=== PATIENT | male | born 1940 | race Caucasian/White ===

== ENCOUNTER 2016-10-30 09:00 | Emergency (ER) | payer MEDICARE, OTHER ==
[2016-10-30] MEDS ORDERED: Ketorolac Tromethamine 60 MG/2 ML VIAL ONE (09:23)
[2016-10-30] MEDS ORDERED: HYDROcodone/Acetaminophen 10/325 mg Tablet ONE (09:23)
== END 2016-10-30 09:39 | disposition home or self-care (01) ==
LOC: BURERS 09:00
DX: M62.838 Other muscle spasm (principal); M79.604 Pain in right leg; I10 Essential (primary) hypertension
CPT/HCPCS: 96372; J1885

== ENCOUNTER 2018-12-17 13:55 | Emergency (ER) | payer MEDICARE ==
[2018-12-17] MEDS ORDERED: Ketorolac Tromethamine 30 MG/ML VIAL ONE (14:22)
[2018-12-17] MEDS ORDERED: Fentanyl 100 MCG/2 ML VIAL ONE ×2 (14:22→14:51)
[2018-12-17] MEDS ORDERED: HYDROcodone/Acetaminophen 5/325 mg Tablet ONE (14:51)
--- NOTE | 2018-12-17 19:59 | RAD ---
PORTABLE CHEST: Date: 12-17-18 FINDINGS: An AP portable film at 1437 shows a normal sized heart with no mediastinal widening or shift. The tra see is midline. The lungs are fully inflated and clear. There is no sign of pneumothorax or pleural effusions. IMPRESSION: No acute thoracic findings. POS: HOME
--- NOTE | 2018-12-17 20:19 | RAD ---
LEFT SHOULDER THREE VIEWS: Date: 12-17-18 FINDINGS: There is a fracture through the body of the scapula that starts just below the glenoid fossa and exte nds medially. There is slight displacement of fragments. Calcific tendinitis is seen in the soft tiss ues around the humeral head. No major rib fractures were demonstrated. There was perhaps a little irr egularity of the left 3rd rib, but not enough to call any fracture. There is no sign of a pneumothora x. Degenerative changes are present in the AC joint. There are no dislocations. IMPRESSION: 1. A fracture through the body of the scapula. 2. Calcific tendinitis. POS: HOME
== END 2018-12-17 15:55 | disposition home or self-care (01) ==
LOC: BURERS 13:55
DX: S42.112A Displaced fracture of body of scapula, left shoulder, initial encounter for closed fracture (principal); E78.5 Hyperlipidemia, unspecified; I10 Essential (primary) hypertension; W11.XXXA Fall on and from ladder, initial encounter
CPT/HCPCS: 71045; 96374; 96375; J1885; J3010

== ENCOUNTER 2018-12-20 13:29 | Emergency (ER) | payer MEDICARE ==
--- NOTE | 2018-12-20 18:09 | RAD ---
PORTABLE CHEST 12/20/18 An AP portable film at 1350 is compared with a 12/17/18 study. In the interval, there has been the appearance of subcutaneous emphysema seen at the base of the neck and over the top of the left shoulder. I do not see a pneumothorax or pleural effusion. The patient' s known left scapular fracture is not easily seen on this particular study. The trachea is midline. T he heart size is normal. IMPRESSION: Interval appearance of subcutaneous emphysema as described above. See CT report to follow. POS: HOME
--- NOTE | 2018-12-20 18:13 | CT ---
CT OF THE CHEST WITHOUT CONTRAST 12/20/18 There is an extensive amount of subcutaneous emphysema seen dissecting into the neck bilaterally, but more so on the left. Subcutaneous air is present over the left shoulder and in the left anterior rusty st wall, dissecting between the pectoral muscles. There is a small pneumomediastinum. Air is seen humza und the tracheoesophageal region. No pericardial effusion was seen. The lungs showed no pneumothorax or pleural effusion. The thoracic vertebrae appear intact. Some Schmorl's nodes were noted in some of them. The multiple comminuted fractures of the left scapula are noted with some off-set of fragments. In sp ite of the air seen, I am hard pressed to find a definite or significant rib fracture. IMPRESSION: 1. Interval appearance of a pneumomediastinum and extensive subcutaneous emphysema at the base o f the neck and left anterior chest wall. 2. Multiple fractures of the left scapula as noted. 3. No evidence of pneumothorax, significant pleural effusion, or pulmonary contusion. POS: HOME
== END 2018-12-20 14:41 | disposition home or self-care (01) ==
LOC: BURERS 13:29
DX: T79.7XXA Traumatic subcutaneous emphysema, initial encounter (principal); E78.5 Hyperlipidemia, unspecified; I10 Essential (primary) hypertension; Z79.899 Other long term (current) drug therapy; W18.30XA Fall on same level, unspecified, initial encounter
CPT/HCPCS: 71045; 71250

== ENCOUNTER 2024-08-25 22:28 | Emergency (ER) | payer MEDICARE ==
[2024-08-25] MEDS ORDERED: Aspirin Chewable 81 MG TAB ONE (22:49)
[2024-08-25 22:55] LABS: #Basophils 0.1 thou/uL (0.0-0.2); #Eosinophils 0.2 thou/uL (0.0-0.7); #Lymphocytes 1.7 thou/uL (1.20-3.40); #Monocytes 0.9 thou/uL (0.11-0.59); #Neutrophils 6.4 thou/uL (1.40-6.50); %Basophils 1.1 % (0.0-1.0); %Eosinophils 2.1 % (0.0-10.0); %Lymphocytes 18.6 % (21.0-51.0); %Monocytes 9.5 % (0.0-10.0); %Neutrophils 68.8 % (42.0-75.0); Hematocrit 42.3 % (42.0-52.0); Hemoglobin 14.8 g/dL (14.0-18.0); Mean Corpuscular HGB CONC 34.9 g/dL (32.0-36.0); Mean Corpuscular Hemoglobin 30.9 pg (27.0-31.0); Mean Corpuscular Volume 88.6 fl (78.0-98.0); Mean Platelet Volume 6.8 fL (7.4-10.4); Platelet Count 207 10x3/uL (130-400); RBC Distribution Width 11.3 % (11.5-14.5); Red Blood Cell (RBC) Count 4.77 mill/uL (4.70-6.10); White Blood Cell (WBC) Count 9.3 10x3/uL (4.8-10.8)
[2024-08-25 23:11] LABS: ALT (SGPT) 24 U/L (8-55); AST (SGOT) 25 U/L (5-34); Albumin 3.9 g/dL (3.4-4.8); Alkaline Phosphatase 79 U/L (40-110); Anion Gap 13 mmol/L (10-20); BUN (Urea Nitrogen) 18 mg/dL (8.4-25.7); Bilirubin, Total 0.5 mg/dL (0.2-1.2); Calc. Creatinine Clearance 0 mL/min (70-130); Calcium 9.1 mg/dL (7.8-10.44); Carbon Dioxide 22 mmol/L (23-31); Chloride 109 mmol/L (98-107); Estimated GFR 70; Globulin 2.8 g/dL (2.4-3.5); Glucose 103 mg/dL (83-110); Potassium 3.8 mmol/L (3.5-5.1); Protein, Total 6.7 g/dL (5.8-8.1); Sodium 140 mmol/L (136-145)
[2024-08-25 23:17] LABS: Troponin I Less than 0.010 ng/mL (< 0.028)
== END 2024-08-26 01:12 | disposition home or self-care (01) ==
LOC: BURERS 22:28
DX: R07.89 Other chest pain (principal); E78.5 Hyperlipidemia, unspecified; I10 Essential (primary) hypertension
CPT/HCPCS: 71045; 80053; 84484; 85025; 93005

== ENCOUNTER 2025-04-01 07:37 | Emergency (ER) | payer MEDICARE ==
[2025-04-01 08:12] LABS: #Basophils 0.1 thou/uL (0.0-0.2); #Eosinophils 0.1 thou/uL (0.0-0.7); #Lymphocytes 1.6 thou/uL (1.20-3.40); #Monocytes 0.5 thou/uL (0.11-0.59); #Neutrophils 4.7 thou/uL (1.40-6.50); %Basophils 1.3 % (0.0-1.0); %Eosinophils 1.8 % (0.0-10.0); %Lymphocytes 22.1 % (21.0-51.0); %Monocytes 7.6 % (0.0-10.0); %Neutrophils 67.3 % (42.0-75.0); Hematocrit 44.3 % (42.0-52.0); Hemoglobin 15.5 g/dL (14.0-18.0); Mean Corpuscular Hemoglobin 31.8 pg (27.0-31.0); Mean Corpuscular Volume 90.7 fl (78.0-98.0); Platelet Count 182 10x3/uL (130-400); Red Blood Cell (RBC) Count 4.88 mill/uL (4.70-6.10); White Blood Cell (WBC) Count 7.1 10x3/uL (4.8-10.8)
[2025-04-01] MEDS ORDERED: Nitroglycerin 0.4 MG TAB 1 EACH ONE (08:12)
[2025-04-01 08:27] LABS: Troponin I 0.012 ng/mL (< 0.028)
[2025-04-01 08:30] LABS: ALT (SGPT) 18 U/L (Less than 45); AST (SGOT) 27 U/L (11-34); Albumin 4.1 g/dL (3.1-4.5); Alkaline Phosphatase 84 U/L (40-110); Anion Gap 15 mmol/L (10-20); BUN (Urea Nitrogen) 15 mg/dL (8.4-25.7); Bilirubin, Total 0.9 mg/dL (0.3-1.2); Calc. Creatinine Clearance 0 mL/min (70-130); Calcium 9.0 mg/dL (7.8-10.44); Carbon Dioxide 22 mmol/L (23-31); Chloride 108 mmol/L (98-107); Globulin 2.9 g/dL (2.4-3.5); Glucose 101 mg/dL (83-110); Potassium 4.3 mmol/L (3.5-5.1); Sodium 141 mmol/L (136-145)
[2025-04-01 08:32] LABS: INR-International Normal Ratio 1.1; Prothrombin Time 14.1 sec (12.0-14.7)
[2025-04-01 08:33] LABS: PTT 30.2 sec (22.9-36.1)
[2025-04-01] MEDS ORDERED: Enoxaparin 100 MG (1 mL) SYRINGE ONE (10:01)
== END 2025-04-01 10:40 | disposition short-term general hospital (02) ==
LOC: BURERS 07:37
DX: R07.9 Chest pain, unspecified (principal); I10 Essential (primary) hypertension; E78.5 Hyperlipidemia, unspecified; I25.10 Atherosclerotic heart disease of native coronary artery without angina pectoris; Z79.899 Other long term (current) drug therapy
CPT/HCPCS: 71046; 80053; 83880; 84484; 85025; 85610; 85730; 93005; 94760; 96372; J1650